=== PATIENT | female | born 1955 | race Caucasian/White ===

== ENCOUNTER → 2016-12-09 | Outpatient (CLI) | payer BC ==
[~2016-12-09] MED LIST: ASPIRIN 81M81 MG/TA2 PO; CARAFATE S1 GM/10 ML PO; CEFTIN500 MG PO; MAG-CAPS85 MG PO; NEXIUM 20MG20 MG PO; OMEGA 31000 MG PO; OYSCO 500500 M1 PO; RED RICE YEAST E0.4%; VITAMINC1000TA PO; ZANTAC 150150 MG PO; ZYRTEC 10MG10 MG PO
== END ==
LOC: MC.RAD 12-06 13:40
DX: Z12.31 Encounter for screening mammogram for malignant neoplasm of breast (principal)

== ENCOUNTER → 2017-12-13 | Outpatient (CLI) | payer BC | LOC: MC.RAD 07:51 | DX: Z12.31 Encounter for screening mammogram for malignant neoplasm of breast (principal) ==

== ENCOUNTER → 2018-12-15 | Outpatient (CLI) | payer BC | LOC: MC.RAD 07:00 | DX: Z12.31 Encounter for screening mammogram for malignant neoplasm of breast (principal) ==

== ENCOUNTER → 2019-12-27 | Outpatient (CLI) | payer BC | LOC: MC.RAD 08:28 | DX: Z12.31 Encounter for screening mammogram for malignant neoplasm of breast (principal) ==

== ENCOUNTER → 2020-08-28 | Outpatient (CLI) | payer BC | LOC: MC.RAD | DX: M79.621 Pain in right upper arm (principal) ==

== ENCOUNTER → 2020-12-31 | Outpatient (CLI) | payer BC | LOC: MC.RAD 09:23 | DX: Z12.31 Encounter for screening mammogram for malignant neoplasm of breast (principal) ==

== ENCOUNTER 2021-01-06 08:27 | Day surgery (SDC) | payer BC ==
[~2021-01-06] VITALS: Ht 165.1 cm; Wt 48.7 kg
[2021-01-06 09:15] VITALS: BP 139/78; PULSE 79; TEMP 99.1
[2021-01-06 10:27] VITALS: BP 104/67; PULSE 65; TEMP 98.7
--- NOTE | 2021-01-06 10:27 | NUR ---
PATIENT TRANSPORTED PER CART FROM GI SUITE TO BAY 4 ACCOMPANIED BY TIFFANIE RN. PATIENT AMBULATED FROM CART TO CHAIR WITH SLOW STEADY GAIT. IN ROOM. MONITORS REAPPLIED. VSS ON ROOM AIR. PATIENT TALKING WITH STAFF AND .
[2021-01-06 10:30] VITALS: BP 104/65; PULSE 60
--- NOTE | 2021-01-06 10:33 | NUR ---
VSS ON ROOM AIR. PATIENT GIVEN TOAST, JELLO, AND WATER. EATS AND DRINKS WITHOUT PROBLEMS. DENIES DISCOMFORT.
[2021-01-06 10:45] VITALS: BP 115/64; PULSE 55
--- NOTE | 2021-01-06 10:50 | NUR ---
VSS ON ROOM AIR. PATIENT EATING AND DRINKING WITHOUT PROBLEMS. AT CHAIRSIDE.
[2021-01-06 11:00] VITALS: BP 127/68; PULSE 58
--- NOTE | 2021-01-06 11:05 | NUR ---
DR ESPAÑA IN ROOM AND SPEAKS WITH PATIENT AND . VSS ON ROOM AIR. 1112 IV DC'D WITH CATHETER TIP INTACT. PRESSURE AND BANDAGE APPLIED.
[2021-01-06 11:15] VITALS: BP 128/68; PULSE 60
--- NOTE | 2021-01-06 11:15 | NUR ---
DISCHARGE INSTRUCTIONS GIVEN VERBAL AND DISCHARGE PACKET PROVIDED. QUESTIONS ANSWERED AND PATIENT VOICED UNDERSTANDING. PRESENT. 1120 PATIENT DISCHARGED PER WHEEL CHAIR ACCOMPANIED BY AMB RN TO PRIVATE VECHILE DRIVEN BY .
== END 2021-01-06 11:20 | disposition home or self-care (01) ==
LOC: SDCO 08:27
DX: D12.5 Benign neoplasm of sigmoid colon (principal); D12.4 Benign neoplasm of descending colon; K64.0 First degree hemorrhoids; K92.1 Melena; K21.9 Gastro-esophageal reflux disease without esophagitis; I25.10 Atherosclerotic heart disease of native coronary artery without angina pectoris; Z20.822 Contact with and (suspected) exposure to COVID-19; Z90.710 Acquired absence of both cervix and uterus
CPT/HCPCS: J2704; J7120

== ENCOUNTER 2021-07-28 06:17 | Emergency (ER) | payer BC ==
[~2021-07-28] VITALS: Ht 165.1 cm; Wt 50.0 kg
[2021-07-28 06:24] VITALS: TEMP 97.7
[2021-07-28 07:00] VITALS: BP 132/61; PULSE 72
== END 2021-07-28 07:12 | disposition home or self-care (01) ==
LOC: COL.ER 06:17
DX: R07.89 Other chest pain (principal)

== ENCOUNTER → 2021-07-29 | Outpatient (CLI) | payer BC | LOC: COL.RAD 07:32 | DX: Z01.818 Encounter for other preprocedural examination (principal); R10.12 Left upper quadrant pain; K31.9 Disease of stomach and duodenum, unspecified | CPT/HCPCS: Q9967 ==

== ENCOUNTER → 2021-08-07 | Outpatient (CLI) | payer BC ==
[~2021-08-07] MED LIST changes: +LOPRESSOR 225 MG/TAB PO; +NEXIUM 40MG40 MG PO
== END ==
LOC: COL.RAD 09:18
DX: K21.9 Gastro-esophageal reflux disease without esophagitis (principal)

== ENCOUNTER → 2021-08-07 | Day surgery (SDC) | payer BC ==
[~2021-08-07] VITALS: Ht 165.1 cm; Wt 50.6 kg
[2021-08-07 13:52] VITALS: BP 147/72; PULSE 80; TEMP 97.8
[2021-08-07 14:10] VITALS: BP 113/69; PULSE 69; TEMP 98
--- NOTE | 2021-08-07 14:10 | NUR ---
The patient arrived from the endo suite, drowsy but oriented. Her gait was a little unsteady, however she successfully ambulated from the cart to the chair. Vitals obtained. Report obtained. The patient requested applsauce, plain wheat toast and ice water. Call chen is within reach. Warm blankets provided.
[2021-08-07 14:25] VITALS: BP 126/70; PULSE 63
--- NOTE | 2021-08-07 14:25 | NUR ---
Vitals obtained. The patient denies nausea. No vomiting.
[2021-08-07 14:40] VITALS: BP 136/64; PULSE 70
--- NOTE | 2021-08-07 14:40 | NUR ---
Vitals obtained. IV was discontinued. Catheter tip intact. Pressure dressing applied. No swelling or redness noted. The patient denied needing assistance changing into her personal clothes.
--- NOTE | 2021-08-07 15:00 | NUR ---
DC instructions and educational material was reviewed with the patient, who verbalized understanding the material. She signed the realted paperwork. She states her is in a meeting, and will arrive as soon as possible. Chocolate chip muffin and a Sprite was provided. Call chen is within reach.
[2021-08-07 15:33] VITALS: BP 113/69; PULSE 60
== END ==
LOC: SDCO 12:59
DX: T18.198A Other foreign object in esophagus causing other injury, initial encounter (principal); K21.9 Gastro-esophageal reflux disease without esophagitis; I25.10 Atherosclerotic heart disease of native coronary artery without angina pectoris; D51.9 Vitamin B12 deficiency anemia, unspecified; Z79.82 Long term (current) use of aspirin; Z79.899 Other long term (current) drug therapy; Z82.3 Family history of stroke
CPT/HCPCS: J7030

== ENCOUNTER 2021-08-15 19:13 | Emergency (ER) | payer BC ==
[2021-08-15 19:45] VITALS: TEMP 98.6
[2021-08-15 20:30] LABS: BASO # 0.1 K/mm3 (0.0-0.2); BASO % 0.8 % (0.0-2.0); EOS % 0.6 % (0.0-4.0); GRAN % 60.8 % (42.2-75.2); HEMATOCRIT 37.1 % (37.0-47.0); HEMOGLOBIN 12.7 g/dl (12.5-16.0); LYMPH # 1.9 K/mm3 (1.2-3.4); LYMPH % 29.4 % (20.0-51.0); MEAN CELL VOLUME 88 fl (80.0-100.0); MEAN CORPUSCULAR HEMOGLOBIN 30 pg (27-31); MEAN CORPUSCULAR HGB CONC 34 g/dl (33.0-37.0); MEAN PLATELET VOLUME 9.6 fl (7.4-10.4); MONO # 0.5 K/mm3 (0.1-0.6); MONO % 8.1 % (1.7-9.3); PLATELET COUNT 251 K/mm3 (130-400); RED BLOOD COUNT 4.22 M/mm3 (4.10-5.30); REDCELL DISTRIBUTION WIDTH-CV 12.6 % (11.5-14.5)
[2021-08-15 20:39] LABS: ALBUMIN 3.9 gm/dL (3.4-4.8); ANION GAP 7 mmol/L (7-16); BLOOD UREA NITROGEN 18 mg/dL (10-20); CALCIUM 10.2 mg/dL (8.4-10.2); CARBON DIOXIDE 28 mmol/L (23-31); CHLORIDE 107 mmol/L (98-107); CREATININE, serum 0.71 mg/dL (0.57-1.11); GLUCOSE 96 mg/dL (70-99); PHOSPHOROUS 4.2 mg/dL (2.3-4.7); POTASSIUM 3.6 mmol/L (3.5-4.5); SODIUM 142 mmol/L (136-145)
[2021-08-15 21:00] LABS: TSH w REFLEX 2.729 uIU/mL (0.350-4.940)
[2021-08-15 21:02] LABS: TROPONIN-I < 0.010 ng/mL (0.00-0.033)
[2021-08-15 21:48] VITALS: BP 145/61; PULSE 80
== END 2021-08-15 21:50 | disposition home or self-care (01) ==
LOC: COL.ER 19:13
PROVIDERS: Emergency Medicine
DX: R07.89 Other chest pain (principal); R00.2 Palpitations; F41.9 Anxiety disorder, unspecified; Z98.61 Coronary angioplasty status; Z79.899 Other long term (current) drug therapy

== ENCOUNTER → 2022-01-05 | Outpatient (CLI) | payer BC | LOC: MC.RAD 07:27 | DX: Z12.31 Encounter for screening mammogram for malignant neoplasm of breast (principal) ==

== ENCOUNTER → 2024-02-22 | Outpatient (CLI) | payer BC | LOC: MC.RAD 07:37 | DX: Z12.31 Encounter for screening mammogram for malignant neoplasm of breast (principal) ==